=== PATIENT | male | born 1980 | race Caucasian/White ===

== ENCOUNTER 2018-02-09 10:26 | Emergency (ER) | payer SELFPAY ==
--- NOTE | 2018-02-09 10:58 | EDPHYS ---
Physician Documentation [facility] Name: Willy Tavares Age: 37 yrs Sex: Male : 1980 Arrival Date: 02/09/2018 Time: 10:29 Bed 13 Private MD: None, None ED Physician Stevan Chung HPI: 02/09 10:55 This 37 yrs old Male presents to ER via Ambulatory with complaints of Swollen sunny Glands, Ear Pain. 10:55 The patient presents with pain. The complaints affect the right ear and left ear. sunny Onset: The symptoms/episode began/occurred 1 year(s) ago. 10:56 Modifying factors: The symptoms are alleviated by nothing, the symptoms are aggravated sunny by nothing. Modifying factors: The symptoms are alleviated by nothing. Severity of symptoms: At their worst the symptoms were mild, in the emergency department the symptoms are unchanged. Historical: - Allergies: 10:38 No Known Allergies; sv - Home Meds: 10:38 None [Active]; sv - PMHx: 10:38 None; sv - PSHx: 10:38 right femur fracture with katia placement; sv - Immunization history:: Flu vaccine is not up to date. - Social history:: Smoking status: Patient uses tobacco products, smokes one-half pack cigarettes per day, Patient uses alcohol, occasionally. - Ebola Screening: : No symptoms or risks identified at this time. - Family history:: not pertinent. ROS: 10:56 Constitutional: Negative for fever, chills, and weight loss, Eyes: Negative for injury, sunny pain, redness, and discharge, Neck: Negative for injury, pain, and swelling, Cardiovascular: Negative for chest pain, palpitations, and edema, Abdomen/GI: Negative for abdominal pain, nausea, vomiting, diarrhea, and constipation, Back: Negative for injury and pain, : Negative for injury, bleeding, discharge, and swelling, MS/Extremity: Negative for injury and deformity, Skin: Negative for injury, rash, and discoloration, Neuro: Negative for headache, weakness, numbness, tingling, and seizure, Psych: Negative for depression, anxiety, suicide ideation, homicidal ideation, and hallucinations, Allergy/Immunology: Negative for hives, rash, and allergies, Endocrine: Negative for neck swelling, polydipsia, polyuria, polyphagia, and marked weight changes, Hematologic/Lymphatic: Negative for swollen nodes, abnormal bleeding, and unusual bruising. 10:56 ENT: Positive for ear pain. 10:56 Respiratory: Positive for cough, shortness of breath, on exertion. Exam: 10:56 Constitutional: This is a well developed, well nourished patient who is awake, alert, sunny and in no acute distress. Head/Face: Normocephalic, atraumatic. Eyes: Pupils equal round and reactive to light, extra-ocular motions intact. Lids and lashes normal. Conjunctiva and sclera are non-icteric and not injected. Cornea within normal limits. Periorbital areas with no swelling, redness, or edema. ENT: Nares patent. No nasal discharge, no septal abnormalities noted. Tympanic membranes are normal and external auditory canals are clear. Oropharynx with no redness, swelling, or masses, exudates, or evidence of obstruction, uvula midline. Mucous membranes moist. Neck: Trachea midline, no thyromegaly or masses palpated, and no cervical lymphadenopathy. Supple, full range of motion without nuchal rigidity, or vertebral point tenderness. No Meningismus. Chest/axilla: Normal chest wall appearance and motion. Nontender with no deformity. No lesions are appreciated. Cardiovascular: Regular rate and rhythm with a normal S1 and S2. No gallops, murmurs, or rubs. Normal PMI, no JVD. No pulse deficits. Respiratory: Lungs have equal breath sounds bilaterally, clear to auscultation and percussion. No rales, rhonchi or wheezes noted. No increased work of breathing, no retractions or nasal flaring. Abdomen/GI: Soft, non-tender, with normal bowel sounds. No distension or tympany. No guarding or rebound. No evidence of tenderness throughout. Back: No spinal tenderness. No costovertebral tenderness. Full range of motion. Male : Normal genitalia with no discharge or lesions. Skin: Warm, dry with normal turgor. Normal color with no rashes, no lesions, and no evidence of cellulitis. MS/ Extremity: Pulses equal, no cyanosis. Neurovascular intact. Full, normal range of motion. Neuro: Awake and alert, GCS 15, oriented to person, place, time, and situation. Cranial nerves II-XII grossly intact. Motor strength 5/5 in all extremities. Sensory grossly intact. Cerebellar exam normal. Normal gait. Psych: Awake, alert, with orientation to person, place and time. Behavior, mood, and affect are within normal limits. Vital Signs: 10:38 BP 126 / 80; Pulse 79; Resp 18; Temp 97.3; Pulse Ox 98% ; Weight 68.04 kg; Height 5 ft. sv 7 in. (170.18 cm); Pain 7/10; 10:38 Body Mass Index 23.49 (68.04 kg, 170.18 cm) sv MDM: 10:33 Patient medically screened. [facility] 10:57 Data reviewed: vital signs, nurses notes, radiologic studies. [facility] Administered Medications: 11:06 Drug: Zithromax 500 mg Route: PO; ss 11:06 Drug: predniSONE 40 mg Route: PO; Disposition: 02/09/18 10:58 Discharged to Home. Impression: Fever, unspecified, Acute upper respiratory infection, unspecified. - Condition is Stable. - Discharge Instructions: Fever, Adult, Upper Respiratory Infection, Adult. - Prescriptions for Reta- D 12 Hour 60-120 mg Oral Tablet Sustained Release 12 hr - take 1 tablet by ORAL route every 12 hours As needed; 20 tablet. Zithromax Z- Nadir 250 mg Oral Tablet - take 1 tablet by ORAL route as directed for 5 days Day 1 - take two (2) tablets one time. Day 2, 3, 4 , 5 take one (1) tablet once daily.; 6 tablet. Medrol (Nadir) 4 mg Oral Tablets, Dose Pack - take 1 tablet by ORAL route as directed - follow package instructions; 1 packet. - Medication Reconciliation Form, Thank You Letter, Antibiotic Education, Prescription Opioid Use, Work release form form. - Follow up: Private Physician; When: 2 - 3 days; Reason: Recheck today's complaints, Continuance of care, Re-evaluation by your physician. - Problem is new. - Symptoms have improved. Signatures: Dispatcher [employer] Hedy Roblero, RN RN Stevan Gutierrez MD MD cha Smirch, Shelby, RN RN ss Corrections: (The following items were deleted from the chart) 11:07 10:58 02/09/2018 10:58 Discharged to Home. Impression: Fever, unspecified; Acute upper ss respiratory infection, unspecified. Condition is Stable. Forms are Medication Reconciliation Form, Thank You Letter, Antibiotic Education, Prescription Opioid Use. Follow up: Private Physician; When: 2 - 3 days; Reason: Recheck today's complaints, Continuance of care, Re-evaluation by your physician. Problem is new. Symptoms have improved. sunny
--- NOTE | 2018-02-09 10:58 | ER ---
Nurse's Notes [facility] Name: Willy Tavares Age: 37 yrs Sex: Male : 1980 Arrival Date: 02/09/2018 Time: 10:29 Bed 13 Private MD: None, None Diagnosis: Fever, unspecified;Acute upper respiratory infection, unspecified Presentation: 02/09 10:33 Presenting complaint: Patient states: adrianne ear pain x 1 yr, sore throat and swollen sv tonsils x 4-5 days, and neck pain. Transition of care: patient was not received from another setting of care. Onset of symptoms is unknown. Risk Assessment: Do you want to hurt yourself or someone else? Patient reports no desire to harm self or others. Care prior to arrival: None. 10:33 Method Of Arrival: Ambulatory sv 10:33 Acuity: SOL 3 sv Triage Assessment: 10:35 General: Appears in no apparent distress. uncomfortable, Behavior is calm, cooperative. sv Pain: Complains of pain in back of neck, left aspect of posterior pharynx and right aspect of posterior pharynx Pain currently is 7 out of 10 on a pain scale. EENT: Reports pain in left aspect of posterior pharynx and right aspect of posterior pharynx and bilateral ears. Neuro: Level of Consciousness is awake, alert, obeys commands, Oriented to person, place, time, situation, Moves all extremities. Full function Gait is steady, Speech is normal. Respiratory: Airway is patent Respiratory effort is even, unlabored, Respiratory pattern is regular, symmetrical. Historical: - Allergies: 10:38 No Known Allergies; sv - Home Meds: 10:38 None [Active]; sv - PMHx: 10:38 None; sv - PSHx: 10:38 right femur fracture with katia placement; sv - Immunization history:: Flu vaccine is not up to date. - Social history:: Smoking status: Patient uses tobacco products, smokes one-half pack cigarettes per day, Patient uses alcohol, occasionally. - Ebola Screening: : No symptoms or risks identified at this time. - Family history:: not pertinent. Screenin:30 Abuse screen: Denies threats or abuse. Denies injuries from another. Nutritional sg screening: No deficits noted. Tuberculosis screening: No symptoms or risk factors identified. Never had TB. Fall Risk None identified. Vital Signs: 10:38 BP 126 / 80; Pulse 79; Resp 18; Temp 97.3; Pulse Ox 98% ; Weight 68.04 kg; Height 5 ft. sv 7 in. (170.18 cm); Pain 7/10; 10:38 Body Mass Index 23.49 (68.04 kg, 170.18 cm) sv ED Course: 10:29 Patient arrived in ED. sb2 10:29 None, None is Private Physician. sb2 10:33 Stevan Chung MD is Attending Physician. [facility] 10:33 Arm band placed on Patient placed in an exam room, on a stretcher, on pulse oximetry. sv 10:37 Triage completed. 10:37 Chioma Manning, LUIS DANIEL is Primary Nurse. 11:00 Patient has correct armband on for positive identification. sg 11:00 No provider procedures requiring assistance completed. Patient did not have IV access sg during this emergency room visit. Administered Medications: 11:06 Drug: Zithromax 500 mg Route: PO; 11:06 Drug: predniSONE 40 mg Route: PO; Outcome: 10:58 Discharge ordered by . [facility] 11:00 Discharged to home ambulatory, with family. sg 11:00 Condition: good 11:00 Discharge instructions given to patient, Instructed on discharge instructions, follow up and referral plans. medication usage, safety practices, Demonstrated understanding of instructions, follow-up care, medications, Prescriptions given X 3. 11:07 Patient left the ED. Signatures: Hedy Kerr RN RN Abhishek Wu RN RN Stevan Chung MD MD cha Smirch, Shelby, RN RN Naomie Alcantara sb2
[2018-02-09] MEDS ORDERED: AZITHROMYCIN 250 MG TAB ONE (11:09)
[2018-02-09] MEDS ORDERED: predniSONE 20 MG TAB ONE (11:10)
== END 2018-02-09 11:07 | disposition home or self-care (01) ==
LOC: ER 10:26
DX: J06.9 Acute upper respiratory infection, unspecified (principal); F17.210 Nicotine dependence, cigarettes, uncomplicated
CPT/HCPCS: 99283; J7512

== ENCOUNTER → 2023-04-06 | Emergency (ER) | payer SELFPAY ==
[~2023-04-06] MED LIST: AMOX/K CLAV 875 MG TAB ONE
--- NOTE | 2023-04-06 21:34 | EDPHYS ---
Physician Documentation [facility] Name: Willy Tavares Age: 42 yrs Sex: Male : 1980 Arrival Date: 04/06/2023 Time: 20:41 Bed 11 Private MD: ED Physician Stevan Chung HPI: 04/06 23:00 This 42 yrs old Male presents to ER via Ambulatory with complaints of Drainage From kb Eye, infection in teeth, bruse on let. 23:00 Patient is a 42-year-old male who presents for redness and drainage to left eye that kb started 4 days ago. Denies fever. Also reports dental pain that has been ongoing for quite some time. States he has terrible teeth and they get infected a lot. Has not seen a dentist recently.. Historical: - Allergies: 20:49 No Known Allergies; cm10 - Home Meds: 20:49 None [Active]; cm10 - PMHx: 20:49 None; cm10 - Immunization history:: Adult Immunizations not up to date, Client reports having NOT received the Covid vaccine. - Social history:: Smoking status: Patient reports the use of cigarette tobacco products, smokes one-half pack cigarettes per day. ROS: 22:57 Constitutional: Negative for fever, chills, and weight loss, kb 22:57 Eyes: Positive for discharge, matting, redness, of the left eye, 22:57 ENT: Positive for dental pain, 22:57 All other systems are negative, Exam: 22:57 Constitutional: This is a well developed, well nourished patient who is awake, alert, kb and in no acute distress. Head/Face: Normocephalic, atraumatic. Cardiovascular: Regular rate Respiratory: Respirations even and unlabored. No increased work of breathing. Talking in full sentences Abdomen/GI: Soft, non-tender. No distention Skin: Warm, dry with normal turgor. Normal color. MS/ Extremity: Pulses equal, no cyanosis. Neurovascular intact. Full, normal range of motion. Neuro: Awake and alert, GCS 15, oriented to person, place, time, and situation. Moves all extremities. Normal gait. 22:57 Eyes: Periorbital structures: appear normal, Pupils: equal, round, and reactive to light and accomodation, Extraocular movements: intact throughout, Conjunctiva: exudate, in the left eye, injected, in the left eye, 22:57 ENT: Dental exam: dental caries, that is moderate, that is severe, diffusely, missing teeth, Vital Signs: 20:50 BP 135 / 96; Pulse 82; Resp 18; Temp 97.4; Pulse Ox 99% on R/A; Weight 70.31 kg (R); cm10 Height 5 ft. 7 in. ; Pain 5/10; 20:50 Body Mass Index 24.28 (70.31 kg, 170.18 cm) cm10 20:50 Pain Scale: Adult cm10 MDM: 20:52 Patient medically screened. kb 22:59 Differential diagnosis: Corneal abrasion of Corneal ulcer of Foreign body in Acute kb iritis of Acute glaucoma in Data reviewed: vital signs, nurses notes. Counseling: I had a detailed discussion with the patient and/or guardian regarding the historical points, exam findings, and any diagnostic results supporting the discharge/admit diagnosis, the need for outpatient follow up, a dentist, an opthalmologist, to return to the emergency department if symptoms worsen or persist or if there are any questions or concerns that arise at home. Administered Medications: 21:28 Drug: Amoxicillin-Clavulanate PO 875 mg PO once Route: PO; lg3 21:39 Follow up: Response: No adverse reaction lg3 Disposition Summary: 04/06/23 21:33 Discharge Ordered Notes: Location: Home kb Condition: Stable kb Diagnosis - Dental caries, unspecified kb - Other conjunctivitis kb Followup: kb - With: Emergency Department - When: As needed - Reason: Worsening of condition Followup: kb - With: Private Physician - When: 2 - 3 days - Reason: Recheck today's complaints, Continuance of care, Re-evaluation by your physician Discharge Instructions: - Discharge Summary Sheet kb - Dental Caries, Adult kb - Bacterial Conjunctivitis, Adult, [id number] kb - Dental Abscess, [id number] kb Forms: - Medication Reconciliation Form kb - Thank You Letter kb - Antibiotic Education kb - Prescription Opioid Use kb - Patient Portal Instructions kb - Leadership Thank You Letter kb Prescriptions: - Augmentin 875-125 mg Oral Tablet - take 1 tablet ORAL route every 12 hours for 10 days; 20 tablet; Refills: 0, kb Product Selection Permitted - Vigamox 0.5 % Ophthalmic Drops - instill 1 drop OPHTHALMIC route every 8 hours for 7 days; 5 milliliter; kb Refills: 0, Product Selection Permitted Signatures: Fern Wilson, Génesis Jeff, RN RN lg3 Latoya Romano, LUIS DANIEL RN cm10
--- NOTE | 2023-04-06 21:34 | ER ---
Nurse's Notes [facility] Name: Willy Tavares Age: 42 yrs Sex: Male : 1980 Arrival Date: 04/06/2023 Time: 20:41 Bed 11 Private MD: Diagnosis: Dental caries, unspecified;Other conjunctivitis Presentation: 04/06 20:50 Chief complaint: Patient states: Left eye swelling, redness and drainage onset 4 days cm10 ago. Coronavirus screen: Vaccine status: Patient reports being unvaccinated. Client denies travel out of the [place] in the last 14 days. Ebola Screen: Patient denies travel to an Ebola-affected area in the 21 days before illness onset. No symptoms or risks identified at this time. Initial Sepsis Screen: Does the patient meet any 2 criteria? No. Patient's initial sepsis screen is negative. Does the patient have a suspected source of infection? No. Patient's initial sepsis screen is negative. Risk Assessment: Do you want to hurt yourself or someone else? Patient reports no desire to harm self or others. Onset of symptoms was April 06, 2023. 20:50 Method Of Arrival: Ambulatory cm10 20:50 Acuity: SOL 4 cm10 Historical: - Allergies: 20:49 No Known Allergies; cm10 - Home Meds: 20:49 None [Active]; cm10 - PMHx: 20:49 None; cm10 - Immunization history:: Adult Immunizations not up to date, Client reports having NOT received the Covid vaccine. - Social history:: Smoking status: Patient reports the use of cigarette tobacco products, smokes one-half pack cigarettes per day. Screenin:[facility] ED Fall Risk Assessment (Adult) History of falling in the last 3 months, cm10 including since admission No falls in past 3 months (0 pts). Abuse screen: Denies threats or abuse. Denies injuries from another. Nutritional screening: No deficits noted. Tuberculosis screening: No symptoms or risk factors identified. Assessment: 21:39 General: Appears in no apparent distress. comfortable, Behavior is calm, cooperative. cm10 Pain: Complains of pain in left eye. Neuro: No deficits noted. Benítez Agitation-Sedation Scale (RASS): 0 - Alert and Calm Level of Consciousness is awake, alert, obeys commands, Oriented to person, place, time, situation. Cardiovascular: No deficits noted. Respiratory: No deficits noted. Airway is patent Respiratory effort is even, unlabored, Respiratory pattern is regular, symmetrical. GI: No deficits noted. No signs and/or symptoms were reported involving the gastrointestinal system. : No deficits noted. No signs and/or symptoms were reported regarding the genitourinary system. EENT: Eyes are tearing on left eye with exudate noted from left eye Sclera/Cornea are reddened in left eye. Derm: No deficits noted. No signs and/or symptoms reported regarding the dermatologic system. Vital Signs: 20:50 BP 135 / 96; Pulse 82; Resp 18; Temp 97.4; Pulse Ox 99% on R/A; Weight 70.31 kg (R); cm10 Height 5 ft. 7 in. ; Pain 5/10; 20:50 Body Mass Index 24.28 (70.31 kg, 170.18 cm) cm10 20:50 Pain Scale: Adult cm10 ED Course: 20:45 Patient arrived in ED. es 20:50 Arm band placed on Patient placed in waiting room. cm10 20:51 Triage completed. cm10 20:52 [facility] kb 20:52 Stevan Chung MD is Attending Physician. kb 21:40 Patient has correct armband on for positive identification. cm10 21:40 No provider procedures requiring assistance completed. Patient did not have IV access cm10 during this emergency room visit. Administered Medications: 21:28 Drug: Amoxicillin-Clavulanate PO 875 mg PO once Route: PO; lg3 21:39 Follow up: Response: No adverse reaction lg3 Medication: 21:40 VIS not applicable for this client. cm10 Outcome: 21:33 Discharge ordered by . kb 21:40 Discharged to home ambulatory, cm10 21:40 Condition: stable 21:40 Discharge instructions given to patient, Instructed on discharge instructions, follow up and referral plans. medication usage, Demonstrated understanding of instructions, follow-up care, medications, Prescriptions given X 2, 21:41 Patient left the ED. cm10 Signatures: Fern Wilson FNP-C FNP-Ckb Salyer, Edna es Able, Lacie, RN RN lg3 Latoya Romano RN RN cm10
[2023-04-06 22:46] VITALS: BP 135/96; TEMP 97.4; O2SAT 99
== END ==
LOC: ER 20:41
DX: K02.9 Dental caries, unspecified (principal); H10.89 Other conjunctivitis
CPT/HCPCS: 99283